=== PATIENT | female | born 1985 | race Caucasian/White ===

== ENCOUNTER 2017-02-02 05:11 | Inpatient (IN) | payer OTHER ==
[2017-02-02] VITALS (13 sets, daily range): BP systolic 110–148; BP diastolic 67–86; BMI 34.6
[2017-02-02] MEDS ORDERED: PRENATAL COMPLE1 TAB PO (05:17)
[2017-02-02] MEDS ORDERED: TUMS X-STR300 MG PO (05:18)
[2017-02-02 06:40] LABS: HEMATOCRIT 34.5 % (36.0-48.0); HEMOGLOBIN 11.6 g/dL (12-16); MCHC 33.6 g/dL (31.0-37.0); MCV 92.2 fL (80.0-100.0); MEAN PLATELET VOLUME 10.7 fL (7.4-10.4); RBC 3.74 10x6/uL (4.00-5.40); WBC 6.7 10x3/uL (4.8-10.8)
[2017-02-02 07:18] LABS: APPEARANCE SLT CLOUDY (CLEAR); BILIRUBIN NEGATIVE (NEGATIVE); COLOR YELLOW (YELLOW); GLUCOSE NEGATIVE (NEGATIVE); KETONE NEGATIVE (NEGATIVE); NITRITE NEGATIVE (NEGATIVE); PROTEIN NEGATIVE (NEGATIVE); RED CELLS - URINE 0-5 /hpf (0-5); UROBILINOGEN NORMAL (NORMAL)
[2017-02-02 07:19] LABS: BACTERIA MANY /hpf (NONE SEEN); MUCUS <1+ /lpf (NONE SEEN)
--- NOTE | 2017-02-02 09:08 | NUR ---
FUNDUS FIRM, MIDLINE, 2 FINGERS BELOW UMBILLICUS.
--- NOTE | 2017-02-02 10:00 | NUR ---
PT RECEIVED FROM RECOVERY ROOM. PT IS AWAKE AND ALERT. SHE HAD A C-SEC WHICH WAS A REPEAT SECTION. GEN- AWAKE AND ALERT. LUNGS- CLEAR. HEART- RRR. ABD- SOFT WITH TENDERNESS WITH LOW TRANSVERSE INCISION WITH DERMABOND AND STERI STRIPS. CLEAN, DRY AND INTACT. MOD LOCIA RUBRA. VASQUEZ CATH INTACT. IV INTACT R HAND. PATENT. NS WITH PIT INFUSING AT 125 CC/HR. DEMEROL BUSGIRL INITIATED. SCD'S INTACT AND INITIATED. BED IS LOW, SIDE RAILS UP X 2 AND CALL LIGHT IN REACH.
--- NOTE | 2017-02-02 11:00 | NUR ---
PT IS RESTING. SHE IS STILL NOT MOVING HER LEGS AT THIS POINT BUT SHE STATES IT DOES SEEM TO BE WEARING OFF. HER PAIN IS UNDER CONTROL.
--- NOTE | 2017-02-02 12:00 | NUR ---
PADS WERE CHANGED AND PT CLEANED UP. MODERATE LOCIA RUBRA. VASQUEZ INTACT WITH GOOD URINE OUTPUT.
--- NOTE | 2017-02-02 18:05 | NUR ---
PT OFFERS NO COMPLAINTS. FAMILY AT BEDSIDE VISITING. ONOFRE WHITE, VASQUEZ INTACT WITH GOOD URINE OUTPUT.
--- NOTE | 2017-02-02 19:20 | NUR ---
PM ROUNDS MADE, PT IS AT THIS TIME, INFORMED PT THAT I WILL BE BACK SHORTLY TO DO ASSESSMENT, PT VERBALIZES UNDERSTANDING, DENIES NEEDS AT THIS TIME, FOB AND FAMILY IN ROOM
--- NOTE | 2017-02-02 20:45 | NUR ---
ASSESSMENT PER FLOW SHEET, VS OBTAINED, IV IN RIGHT HAND INTACT WITH NO REDNESS OR EDEMA INFUSING VIA PUMP NS WITH PITOCIN AT 125 ML/HR, DEMEROL TIRE ROOM SUPERVISOR TO DELIVER 10MG/10MINS, PT RATES INC PAIN 06/11, PT INST ON AND VERBALIZES UNDERSTANDING OF TIRE ROOM SUPERVISOR, FF, ML, U/U, ALEXI ALMENDAREZ, RN DID AKILAH CARE WITH WET WARM WASH CLOTHS, BLUE CHUX AND AKILAH PAD CHANGED, REPORTS LITE BLEEDING WITH NO CLOTS, BIKINI INC WITH STERI STRIPS CDI WITH NO DRAINAGE NOTED, FRESH ICE PACK TO ABD, VASQUEZ CATH INTACT, DRAINING YELLOW URINE, PT REQUESTED AND SERVED ICE CHIPS FOR OWN WATER, PT STATES "I DON'T DRINK TAP WATER", PT DENIES FURTHER NEEDS
--- NOTE | 2017-02-02 21:33 | NUR ---
PT RESTING WITH EYES CLOSED, RESP QUIET, NO DISTRESS NOTED, LEFT UNDISTURBED AT THIS TIME, FOB ON COUCH
--- NOTE | 2017-02-02 22:06 | NUR ---
NEW BAG OF NS WITH PITOCIN HUNG IV PER MD ORDERS, SEE EMAR, NO NEEDS VOICED AT THIS TIME, FOB ASLEEP ON COUCH
[2017-02-03] VITALS: BP 118/79
--- NOTE | 2017-02-03 | NUR ---
PT AWAKE, JUST FINISHED , VS OBTAINED, VASQUEZ EMPTIED, PT RATES INC PAIN AND CRAMPING /, REQUESTED AND ACCOMMODATED HEATING UP SOUP, FRESH ICE PACK PROVIDED, DENIES FURTHER NEEDS, FOB ON COUCH
--- NOTE | 2017-02-03 02:00 | NUR ---
PT RESTING WITH EYES CLOSED, RESP QUIET, NO DISTRESS NOTED, LEFT UNDISTURBED AT THIS TIME, FOB ASLEEP ON COUCH
[2017-02-03 04:25] VITALS: BP 132/79
--- NOTE | 2017-02-03 04:25 | NUR ---
PT AWAKE, VS OBTAINED, I&O'S COLLECTED, AKILAH CARE DONE WITH WET WARM WASH CLOTHS, SCANT VAG BLEEDING, BLUE CHUX AND AKILAH PAD CHANGED, PT DENIES NEEDS AT THIS TIME, FOB AT BEDSIDE
--- NOTE | 2017-02-03 04:52 | NUR ---
DEMEROL WELFARE SUPERVISOR FINISHED INFUSING, WELFARE SUPERVISOR DISCONTINUED, ADM TORADOL SIVP PER MD ORDERS, SEE EMAR, INFORMED PT THAT I WILL COME BACK WHEN SHE IS FINISHED FEEDING BABY AND THAT I WILL SALINE LOCK IV AND REMOVE VASQUEZ, PT VERBALIZES UNDERSTANDING, DENIES FURTHER NEEDS AT THIS TIME, FOB ASLEEP ON COUCH
--- NOTE | 2017-02-03 05:51 | NUR ---
PT BABY, DENIES NEEDS OR PAIN, REPORTS THAT THE TORADOL REALLY HELPED, FOB ASLEEP ON COUCH
[2017-02-03 06:11] LABS: HEMATOCRIT 33.5 % (36.0-48.0); HEMOGLOBIN 11.3 g/dL (12-16); MCH 31.3 pg (26.0-34.0); MCHC 33.7 g/dL (31.0-37.0); MCV 92.8 fL (80.0-100.0); MEAN PLATELET VOLUME 10.6 fL (7.4-10.4); RBC 3.61 10x6/uL (4.00-5.40); RDW 12.9 % (11.5-14.5)
[2017-02-03 06:13] LABS: WBC 9.3 10x3/uL (4.8-10.8)
[2017-02-03 07:29] LABS: RAPID PLASMA REAGIN Non Reactive (Non Reactive)
[2017-02-03 07:30] VITALS: BP 125/67
--- NOTE | 2017-02-03 07:30 | NUR ---
PT WAS RECEIVED LYING IN BED. BED IS LOW, SIDERAILS UPX2 AND CALL LIGHT IN REACH. VSS, GEN- AWAKE AND ALERT. LUNGS CLEAR. HEART RRR. ABD- SOFT WITH TENDERNESS NOTED. BS+. LOW TRANSVERSE INCISION WITH DERMABOND AND STERI STRIPS. CLEAN AND DRY. VASQUEZ CATH INTACT WITH GOOD URINE OUTPUT. SALINE LOCK PATENT R HAND. SCD'S INTACT.
--- NOTE | 2017-02-03 09:00 | NUR ---
VASQUEZ CATH REMOVED. 750 CC GEOVANNA COLORED URINE.
--- NOTE | 2017-02-03 09:37 | NUR ---
PT IS UP TO THE SHOWER. LINENS CHANGED. PT TOLERATED WELL.
--- NOTE | 2017-02-03 09:50 | NUR ---
PT IS OUT OF SHOWER. SHE DID WELL. SHE PASSED A SMALL CLOT IN SHOWER. TOLD PT THIS IS NORMAL. INCISION CARE DISCUSSED. WASH WITH SOAP AND WATER, PAT DRY AND APPLY AKILAH PAD OVER INCISION TO KEEP IT DRY. PT IS BACK TO BED.
--- NOTE | 2017-02-03 10:01 | NUR ---
Alyce Lawson 02/03/17 LE@ 8:50 S: Patient states," likes to sleep, some times it can be hard to wake baby for feeding, is going good. I feel good. Asked when is a good time to start pumping?" O: Patient in bed watching television, FOB on sofa, and in nursery. Praised for and congratulated on delivery. does take time and patience in the beginning. It's important to feed infant on demand when showing feeding cues. Explained feeding cues, benefits of skin to skin, and breast milk composition. It is normal for infant to want to feed every 2-3 hours during the day and 3-4 hours at night. Feeding infant on demand will help with establishing your milk supply. Supply and demand what takes out your body will make more of. Showed patient different positions on how to hold for feedings. Provided and explained handouts on feeding cues, positions for , waking a sleeping baby, engorgement, hand expression, what to expect the first week, and breast milk composition. Asked if her nipples are sore, patient state, "No". Patient showed her nipples to CLC, no signs of trauma or redness. It's important with the first two weeks to latch to the breast as much as possible because you are working on establishing your milk supply. Recommend patient hand express if she needed to within the first two week verses pumping. With engorgement, latch to the breast for every feeding, you may apply ice packs for 2-3 minutes on your breast to help with swelling and follow with warm packs for 2-3 minutes, to help the milk be released, then hand express as needed. Following 2-3 weeks you may pump as you see fit. It's best that you make the better judgment call on when to pump. It is normal not to pump out a lot, 1/2-1 ounce is a normal amount for a mother to pump. Some mom can pump out more, every person is different. The amount you pump out can vary per feeding and during the time you pump. This does not mean this is all your baby is receiving, it means ,this is what you get out when you pump. Encouraged to continue to feed infant on demand. Asked if any questions, concerns, or needs, all declined. A: Patient appears confident with , states it's hard to wake infant at times for feedings. P: Continue to promote exclusively . Anam Ramirez, CLC
--- NOTE | 2017-02-03 12:22 | NUR ---
PT REQUESTED PAIN MED FOR PAIN OF 5/10. GIVEN PAIN MED.
--- NOTE | 2017-02-03 15:25 | NUR ---
CAME OUT AND STATES THAT SHE IS GASSY. REINTERATED THE NEED FOR HER TO WALK IN HALLWAY.
--- NOTE | 2017-02-03 15:48 | NUR ---
GAVE PT MYLICON AND ENCOURAGED TO WALK.
--- NOTE | 2017-02-03 17:39 | NUR ---
PT AMBULATED IN HALLWAY, SHE IS NOW SITTING UP IN CHAIR EATING HER DINNER. REQUEST PAIN MED. GAVE DEMEROL 100 MG PO.
--- NOTE | 2017-02-03 19:15 | NUR ---
PM ROUNDS MADE, PT SITTING UP ON COUCH HOLDING BABY, FOB AT SIDE, INFORMED PT THAT I WILL BE BACK LATER TO DO ASSESSMENT, PT VERBALIZES UNDERSTANDING, DENIES NEEDS OR PAIN AT THIS TIME
--- NOTE | 2017-02-03 20:35 | NUR ---
PT AMB IN KIM, GAIT STEADY, FOB AT SIDE
[2017-02-03 21:28] VITALS: BP 118/80
--- NOTE | 2017-02-03 21:28 | NUR ---
ASSESSMENT PER FLOW SHEET, VS OBTAINED, BIKINI INC WITH STERI STRIPS CDI WITH NO DRAINAGE NOTED, AKILAH PAD OVER INC FOR COMFORT AND MOISTURE CONTROL, PT REPORTS FLATUS, NO BM, VOIDING BY SELF WITH NO DIFFICULTY, AND LITE BLEEDING WITH NO CLOTS, PT C/O INC PAIN AND CRAMPING, ADM DEMEROL PO PER MD ORDERS, SEE EMAR, PT DENIES FURTHER NEEDS, FOB AT SIDE
--- NOTE | 2017-02-03 22:32 | NUR ---
PT GETTING INTO BED, REPORTS JUST COMING OUT OF BR, VOIDED BY SELF WITH NO DIFFICULTY, PT STATES "MY PAIN IS OK, ITS HURTING A LITTLE RIGHT NOW SINCE I GOT UP TO THE BR, BUT IT WILL GET BETTER ONCE I GET BACK INTO BED", PT DENIES NEEDS AT THIS TIME, FOB AT BEDSIDE
--- NOTE | 2017-02-03 23:34 | NUR ---
PT RESTING WITH EYES CLOSED, AROUSES TO SOFT VERBAL STIMULATION, BABY TO ROOM VIA OPEN CRIB CART PER THIS RN, BANDS CHECKED, BABY TO PT'S ARMS FOR , PT DENIES NEEDS AT THIS TIME
[2017-02-04 00:20] VITALS: BP 122/67
--- NOTE | 2017-02-04 00:20 | NUR ---
PT , VS OBTAINED, PT DENIES NEEDS OR PAIN AT THIS TIME, FOB ASLEEP ON COUCH
--- NOTE | 2017-02-04 02:00 | NUR ---
PT HOLDING BABY, DENIES NEEDS OR PAIN AT THIS TIME, FOB ASLEEP ON COUCH
[2017-02-04 04:27] VITALS: BP 130/71
--- NOTE | 2017-02-04 04:27 | NUR ---
PT AWAKE, BABY, VS OBTAINED, DENIES NEED FOR PAIN MED AT THIS TIME, STATES "I'M OK RIGHT NOW", DENIES NEEDS, FOB ASLEEP ON COUCH
--- NOTE | 2017-02-04 06:10 | NUR ---
PT UP IN BR AT THIS TIME, FOB ASLEEP ON COUCH
[2017-02-04 07:15] VITALS: BP 120/76
--- NOTE | 2017-02-04 07:30 | NUR ---
PT WAS RECEIVED THIS AM LYING IN BED. VSS. GEN- AWAKE AND ALERT. LUNGS- CLEAR. HEART- RRR. ABD- SOFT, WITH TENDERNESS, BS+. EXT- MINIMAL EDEMA. LOCIA RUBRA HAS SLOWED DOWN. HER PAIN LEVEL IA 1 IN HER ABDOMEN. BED IS LOW, SIDE RAILS UP X 2. CALL LIGHT IN REACH.
--- NOTE | 2017-02-04 08:51 | NUR ---
PT IS LYING IN BED. OFFERS NO COMPLAINTS. SHE HAS BEEN UP TO BATHROOM.
--- NOTE | 2017-02-04 10:29 | NUR ---
PT C/O PAIN. PAIN IS A 5. DEMEROL 100 MG GIVEN PO.
--- NOTE | 2017-02-04 10:29 | NUR ---
Alyce Lawson 02/04/17 S: Patient states," has just been sleeping, I don't remember when I fed last but she feed about 55 minutes from both breast. I pumped 10ml one time then 20 ml the next time. I asked the nursery nurse to give baby the amount of pumped breastmilk because I couldn't get baby to wake up. O: Patient sitting up on sofa, FOB in room, in nursery. It's normal for infant to sleep, you just need to try and wake for feeding. Provided and explained handout on waking a sleeping. Encouraged to continue to feed infant on demand when showing feeding cues, explained handout on engorgement and how to prevent, what to expect the first week. does take time and patience in the beginning. Asked if she has any questions or concerns, all declined. A: Patient expresses concern for infant sleeping, hard to wake for feeding. P: Continue to feed on demand. Anam Ramirez, CLC
[2017-02-04] MEDS ORDERED: IBUPROFEN600 MG PO (11:15)
[2017-02-04] MEDS ORDERED: MEPERIDINE HCL50 MG PO (11:15)
--- NOTE | 2017-02-04 11:30 | NUR ---
PT AMBULATING IN HALLWAY WITH FOB.
--- NOTE | 2017-02-04 12:45 | NUR ---
DISCHARGE INSTRUCTIONS GIVEN TO PT. DISCUSSED WITH PATIENT. HANDOUTS , PRESCRIPTIONS AND FU APPTS GIVEN.
--- NOTE | 2017-02-04 14:08 | NUR ---
PT TAKEN TO VEHICLE BY WHEELCHAIR.
== END 2017-02-04 14:08 | disposition home or self-care (01) | DRG 766 ==
LOC: D.LD 05:11 → D.WS 07:30 → D.LD 19:00
PROVIDERS: ADMIT Obstetrics & Gynecology
PROC: 10D00Z1 Extraction of Products of Conception, Low, Open Approach (ICD-10-PCS; principal; 2017-02-02 07:30)
PROC: 0UB70ZZ Excision of Bilateral Fallopian Tubes, Open Approach (ICD-10-PCS; 2017-02-02 07:30)
DX: O34.211 Maternal care for low transverse scar from previous cesarean delivery (principal); O99.824 Streptococcus B carrier state complicating childbirth; Z30.2 Encounter for sterilization; Z37.0 Single live birth; Z3A.39 39 weeks gestation of pregnancy